=== PATIENT | male | born 1965 | race Caucasian/White ===

== ENCOUNTER 2018-06-30 11:01 | Day surgery (SDC) | payer MEDICAID ==
[2018-06-27 15:24] LABS: BASOPHILS # (AUTO) 0.1 X10'3 (0-0.2); BASOPHILS % (AUTO) 1.3 % (0-1); EOSINOPHILS # (AUTO) 0.1 X10'3 (0-0.9); LYMPHOCYTES # (AUTO) 1.5 X10'3 (1.1-4.8); LYMPHOCYTES % (AUTO) 26.6 % (21-51); MEAN CORPUSCULAR HEMOGLOBIN 33.3 PG (27.0-31.0); MEAN CORPUSCULAR HGB CONC 34.3 % (33.0-36.5); MEAN CORPUSCULAR VOLUME 96.9 FL (78-98); MEAN PLATELET VOLUME 8.5 FL (7.4-10.4); MONOCYTES # (AUTO) 0.6 X10'3 (0-0.9); MONOCYTES % (AUTO) 10.6 % (2-12); NEUTROPHILS # (AUTO) 3.3 X10'3 (1.8-7.7); NEUTROPHILS % (AUTO) 59.5 % (42-75); PRE OP HEMATOCRIT 37.3 % (42.0-52.0); PRE OP HEMOGLOBIN 12.8 g/dL (14.0-17.9); PRE OP PLATELET COUNT 266 X10'3 (140-440); RED BLOOD COUNT 3.85 X10'6 (4.70-6.10); RED CELL DISTRIBUTION WIDTH 14.6 % (11.5-14.5)
[2018-06-27 15:38] LABS: ALBUMIN 3.8 G/DL (3.4-5.0); ALBUMIN/GLOBULIN RATIO 1.2 (1.1-1.5); ALKALINE PHOSPHATASE 83 IU/L (46-116); BLOOD UREA NITROGEN 20 MG/DL (7-18); BUN/CREATININE RATIO 22.5 (5.4-32.0); CALCIUM 8.8 MG/DL (8.5-10.1); CHLORIDE 104 MMOL/L (99-107); CREATININE 0.89 MG/DL (0.60-1.10); PRE OP ANION GAP 5 (8-16); PRE OP AST 45 U/L (10-37); PRE OP BILIRUB, TOTAL 0.3 MG/DL (0.0-1.0); PRE OP GLUCOSE 84 MG/DL (70-104); PRE OP POTASSIUM 3.7 MMOL/L (3.4-5.1); PRE OP SODIUM 142 MMOL/L (135-145); TOTAL CARBON DIOXIDE 33.3 MMOL/L (24-32); eGFR 89 ML/MIN
[2018-06-27 15:41] LABS: PRE OP ALT 130 U/L (30-65)
[~2018-06-30] VITALS: Ht 175.3 cm; Wt 66.7 kg
[~2018-06-30 11:01] MED LIST: CEFAZOLIN IV ONE; FLUV25TA3 PO; MELO-100 PO; [UNRECOGNIZED DRUG - OTHER] IV ONE; famotidine 20mg tablet PO ONE; ringers solution, lacted 1,000 ML IV SCH
[2018-06-30] MEDS ORDERED: LIDOcaine 1% (10mg/ml) 2ml vial ONE (11:57)
[2018-06-30] MEDS ORDERED: BUPIVAcaine/PF 2.5mg/ml (0.25%) 10ml vial ONE (13:55)
[2018-06-30] MEDS ORDERED: MIDAZolam 5mg/5ml vial ONE (14:05)
[2018-06-30] MEDS ORDERED: fentaNYL/PF 50MCG/1 ML 2ML syringe ONE (14:05)
[2018-06-30 14:33] VITALS: BP 110/68
[2018-06-30 14:40] VITALS: BP 115/74
[2018-06-30 14:41] VITALS: BP 115/74
[2018-06-30 14:43] VITALS: BP 104/62
[2018-06-30 14:53] VITALS: BP 108/64
[2018-06-30 15:03] VITALS: BP 11/66
== END 2018-06-30 15:12 | disposition home or self-care (01) ==
LOC: PAS 11:01
PROVIDERS: ATTEND Orthopaedic Surgery Hand Surgery
DX: G56.01 Carpal tunnel syndrome, right upper limb (principal); G47.33 Obstructive sleep apnea (adult) (pediatric); Z87.09 Personal history of other diseases of the respiratory system; Z91.048 Other nonmedicinal substance allergy status; Z86.69 Personal history of other diseases of the nervous system and sense organs; Z79.2 Long term (current) use of antibiotics; Z79.899 Other long term (current) drug therapy
CPT/HCPCS: 29848; 36415; 80053; 85025; 93005; A6449; J0690; J2250; J3010; J3490; J7120

== ENCOUNTER 2018-08-18 06:32 | Day surgery (SDC) | payer MEDICAID ==
[~2018-08-18] VITALS: Ht 175.3 cm; Wt 69.0 kg
[2018-08-18] VITALS (8 sets, daily range): BP systolic 113–132; BP diastolic 72–85
[~2018-08-18 06:32] MED LIST changes: -CEFAZOLIN IV ONE; -[UNRECOGNIZED DRUG - OTHER] IV ONE; +ceFAZolin 1GM/D5W- ADD-VANTAGE 50 ML IV ONE
[2018-08-18] MEDS ORDERED: LIDOcaine 0.5% (5mg/ml) 50ml vial ONE (07:09)
[2018-08-18] MEDS ORDERED: ringers solution, lacted 1,000 ML IV SCH (07:14)
[2018-08-18] MEDS ORDERED: ondansetron/PF 4mg/2ml inj IV PRN (07:15)
[2018-08-18] MEDS ORDERED: morphine 4 MG/ML inj SYRINge IV PRN ×2 (07:15)
[2018-08-18] MEDS ORDERED: fentaNYL/PF 50MCG/1 ML 2ML syringe IV PRN ×2 (07:15)
[2018-08-18] MEDS ORDERED: hydrALAZINE 20mg/ml inj. IV PRN (07:15)
[2018-08-18] MEDS ORDERED: labetalol 20mg/4ml (5mg/ml) syringe IV PRN (07:15)
[2018-08-18 07:55] LABS: ISTAT CREATININE 0.9 mg/dL (0.8-1.3); ISTAT HGB 14.6 g/dl (14.0-18.0); ISTAT IONIZED CALCIUM 1.19 mmol/L (1.03-1.32); POC BUN/CREATININE RATIO 21.1 (5.4-32.0)
[2018-08-18] MEDS ORDERED: BUPIVAcaine/PF 2.5mg/ml (0.25%) 10ml vial ONE (08:34)
[2018-08-18] MEDS ORDERED: midazolam 2 mg/2 ml injection ONE (08:58)
[2018-08-18] MEDS ORDERED: fentaNYL/PF 50MCG/1 ML 2ML syringe ONE (08:58)
[2018-08-18] MEDS ORDERED: propofol 10mg/ml 20ml vial IV ONE (09:08)
== END 2018-08-18 10:37 | disposition home or self-care (01) ==
LOC: PAS 06:32
PROVIDERS: ATTEND Orthopaedic Surgery Hand Surgery
DX: G56.02 Carpal tunnel syndrome, left upper limb (principal); G47.33 Obstructive sleep apnea (adult) (pediatric); J45.998 Other asthma; F07.81 Postconcussional syndrome; F84.0 Autistic disorder; Z91.048 Other nonmedicinal substance allergy status; Z87.828 Personal history of other (healed) physical injury and trauma; Z79.891 Long term (current) use of opiate analgesic; Z79.1 Long term (current) use of non-steroidal anti-inflammatories (NSAID); Z79.899 Other long term (current) drug therapy; Z98.890 Other specified postprocedural states
CPT/HCPCS: 29848; 80047; A6449; J0690; J2001; J2250; J2704; J3010; J3490; A7000; J7120